=== PATIENT | female | born 1995 | race Caucasian/White ===

== ENCOUNTER 2016-10-09 12:07 | Emergency (ER) | payer OTHER ==
[~2016-10-09] VITALS: Ht 165.1 cm; Wt 61.3 kg
[2016-10-09] MEDS ORDERED: DIPHENHYDRAMINE 50 MG CAPSULE ONE (12:54)
[2016-10-09] MEDS ORDERED: FAMOTIDINE 20 MG TABLET ONE (12:54)
[2016-10-09] MEDS ORDERED: DIPHENHYDRAMINE 25 MG CAPSULE PO ONE (13:00)
[2016-10-09] MEDS ORDERED: FAMOTIDINE 20 MG TABLET PO ONE (13:00)
[2016-10-09] MEDS ORDERED: ONDANSETRON ODT 4 MG PO ONE (14:00)
[2016-10-09 14:17] VITALS: BP 108/71
== END 2016-10-09 14:19 | disposition home or self-care (01) ==
LOC: ED 13:30
DX: T78.1XXA Other adverse food reactions, not elsewhere classified, initial encounter (principal); Y92.89 Other specified places as the place of occurrence of the external cause
CPT/HCPCS: 99284; J7512; Q0163